=== PATIENT | female | born 1990 | race Caucasian/White ===

== ENCOUNTER 2017-09-02 12:50 | Emergency (ER) | payer MEDICAID ==
--- NOTE | 2017-09-02 14:17 | ED Physician Chart ---
ED Chief Complaint/HPI - Patient Information Date Seen:: 09/02/17 Time Seen:: 14:00 Chief Complaint:: masses left axilla History of Present Illness:: Patient's had 4 small masses in her left axilla for last 1 week. Patient normally shaves her axilla. Patient recently had an left axilla abscess I&D. Allergies:: Allergies Allergy/AdvReac Type Severity Reaction Status Date / Time No Known Allergies Allergy Verified 09/02/17 13:59 Vitals:: Vital Signs - 8 hr 09/02/17 13:09 HR 73 RR 18 BP 115/54 O2 Sat % 100 Historian:: Patient Review:: Nurse's Note Reviewed ED Review of Systems - Review of Systems General/Constitutional: No fever, No chills, No weight loss, No weakness, No diaphoresis, No edema, No loss of appetite Skin: Skin lesions, No rash, No bruising Head: No headache, No light-headedness Eyes: No loss of vision, No pain, No diplopia ENT: No earache, No nasal drainage, No sore throat, No tinnitus Neck: No neck pain, No swelling, No thyromegaly, No stiffness, No mass noted Cardio Vascular: No chest pain, No palpitations, No PND, No orthopnea, No edema Pulmonary: No SOB, No cough, No sputum, No wheezing GI: No nausea, No vomiting, No diarrhea, No pain, No melena, No hematochezia, No constipation, No hematemesis G/U: No dysuria, No frequency, No hematuria Musculoskeletal: No bone or joint pain, No back pain, No muscle pain Endocrine: No polyuria, No polydipsia Psychiatric: No prior psych history, No depression, No anxiety, No suicidal ideation Hematopoietic: No bruising, No lymphadenopathy Allergic/Immuno: No urticaria, No angioedema Neurological: No syncope, No focal symptoms, No weakness, No paresthesia, No headache, No seizure, No dizziness, No confusion, No vertigo ED Past Medical History - Past Medical History Past Medical History: No significant medical hx, Asthma/COPD Family History: None Social History: Non Smoker, Alcohol, Other (occasional alcohol consumption) Surgical History: None Psychiatricy History: None Medication: None Family Medical History - Family Member Mother History Unknown: Yes ED Physical Exam - Physical Examination General/Constitutional: Awake, Well-developed, well-nourished, Alert, No distress, GCS 15, Non-toxic appearing, Ambulatory Head: Atraumatic Eyes: Lids, conjuctiva normal, PERRL, EOMI Other Skin comments:: 4 5 mm areas of raised induration left axilla ENMT: External ears, nose nl, Nasal exam nl, Lips, teeth, gums nl Neck: Nontender, Full ROM w/o pain, No JVD, No nuchal rigidity, No bruit, No mass, No stridor Respiratory: Nl effort/Exclusion, Clear to Auscultation, No Wheeze/Rhonchi/Rales Cardio Vascular: RRR, No murmur, gallop, rubs, NL S1 S2 GI: No tenderness/rebounding/guarding, No organomegaly, No hernia, Normal BS's, Nondistended, No mass/bruits, No McBurney tenderness : No CVA tenderness Extremities: No tenderness or effusion, Full ROM, normal strength in all extremities, No edema, Normal digits & nails Neuro/Psych: Alert/oriented, DTR's symmetric, Normal sensory exam, Normal motor strength, Judgement/insight normal, Mood normal, Normal gait, No focal deficits Misc: Normal back, No paraspinal tenderness ED Assessment - Assessment General Assessment: Patient will be prescribed Bactrim DS No. 20 to take one twice a day. Also prescribed Diflucan 150 mg tablet #1 with 1 refill to take one with any signs of a yeast infection. She states she gets a yeast infection whenever she takes antibiotics and requested a prescription in case she does get one when taking the Bactrim DS. I suggested patient use a electric shaver with a general pressure to shave her axilla. These very small early abscesses in the left axilla are too small to I&D. I also suggested patient apply warm compresses to the left axilla. ED Septic Shock - . Is Septic Shock (SBP<90, OR Lactate>4 mmol\L) present?: No - <6hrs of presentation: Vital Signs: Vital Signs - 8 hr 09/02/17 13:09 HR 73 RR 18 BP 115/54 O2 Sat % 100 ED Reassessment (Disposition) - Reassessment Reassessment Condition:: Unchanged - Diagnosis Diagnosis:: 4 small abscesses left axilla - Aftercare/Follow up Instructions Aftercare/Follow-Up Instructions:: Refer to Discharge Instructions - Patient Disposition Discharge/Transfer:: Home Condition at Disposition:: Stable, Unchanged
[2017-09-02] MEDS ORDERED: Sulfamethoxazole/TMP 800/160mg Tab PO ONE (14:24)
[2017-09-02] MEDS ORDERED: Sulfamethoxazole/TMP 800/160mg Tab ONE (14:26)
== END 2017-09-02 14:30 | disposition home or self-care (01) ==
LOC: ER 12:50
DX: L02.412 Cutaneous abscess of left axilla (principal)
CPT/HCPCS: Z7502